=== PATIENT | female | born 1955 | race Two or more races ===

== ENCOUNTER 2020-02-17 09:32 | Outpatient (CLI) | payer OTHER ==
[~2020-02-17 09:32] MED LIST: NABUMETONE500 MG PO; PERCOCET 5/3251 TAB PO
== END 2020-02-17 09:46 | disposition home or self-care (01) ==
LOC: RAD 09:32 → MRI 10:45
PROVIDERS: ATTEND Orthopaedic Surgery
DX: M54.5 Low back pain (principal); M25.562 Pain in left knee; M25.561 Pain in right knee; Z12.31 Encounter for screening mammogram for malignant neoplasm of breast; Z87.898 Personal history of other specified conditions
CPT/HCPCS: 72148; 73721

== ENCOUNTER 2020-02-20 10:56 | Outpatient (CLI) | payer OTHER | END 2020-02-20 11:34 | disposition home or self-care (01) | LOC: NUCLEAR 10:56 | PROVIDERS: ATTEND Internal Medicine | DX: M81.0 Age-related osteoporosis without current pathological fracture (principal); Z13.820 Encounter for screening for osteoporosis ==

== ENCOUNTER 2023-10-30 06:32 | Day surgery (SDC) | payer OTHER ==
[2023-10-28 10:26] LABS: HEMATOCRIT 41.7 % (36.0-45.00); HEMOGLOBIN 13.9 g/dL (12.0-15.00); MEAN CELL VOLUME 89.2 fL (80.00-100.00); MEAN CORPUSCULAR HEMOGLOBIN 29.8 pg (27.00-32.0); MEAN CORPUSCULAR HGB CONC 33.4 g/dl (32.0-36.0); PLATELET COUNT 239 K/uL (150-450); RED BLOOD COUNT 4.68 M/uL (4.00-6.00); RED CELL DISTRIBUTION WIDTH 13.1 % (11.5-14.5)
[2023-10-28 10:28] LABS: URINE APPEARANCE Clear; URINE BILIRRUBIN Negative (NEGATIVE); URINE BLOOD Negative; URINE COLOR Dark Yellow; URINE GLUCOSE Negative (NEGATIVE); URINE LEUKOCYTE Trace; URINE NITRATE Negative; URINE PROTEIN Negative (NEGATIVE); URINE UROBILINOGEN 0.2 E.U./dl
[2023-10-28 10:34] LABS: URINE BACTERIA 123.4 uL (0.0-1933); URINE EPITHELIAL CELLS 16.9 uL (0.0-38.8); URINE RBC 6.3 uL (0.0-20.8); URINE WBC 10.3 uL (0.0-23.2)
[2023-10-28 10:57] LABS: INR 0.98; PROTHROMBIN TIME 10.3 SECONDS (9.0-11.5)
[2023-10-28 11:08] LABS: ALBUMIN 3.7 gm/dL (3.4-5.0); BILIRUBIN TOTAL 0.33 mg/dL (0.3-1.2); CALCIUM 9.4 mg/dL (8.5-10.1); CREATININE SERUM 0.83 mg/dL (0.55-1.02); GFR 68.16; GLOBULINA 3.6 G/DL (2.4-3.5); POTASSIUM 4.45 mEq/L (3.5-5.1); TOTAL PROTEIN 7.3 gm/dL (6.4-8.2)
[~2023-10-30 06:32] MED LIST changes: +LIPITOR40 M1 PO; +METFORMIN HCL500 M3 PO
[2023-10-30] MEDS ORDERED: CEFAZOLIN SODIUM 1,000 MG VIAL ONE (10:37)
[2023-10-30] MEDS ORDERED: CEFAZOLIN SODIUM 1,000 MG VIAL IV ONE (13:00)
== END 2023-10-30 18:00 | disposition home or self-care (01) ==
LOC: CIR.AMB 06:32
PROVIDERS: ATTEND Surgery
DX: D05.12 Intraductal carcinoma in situ of left breast (principal); R59.0 Localized enlarged lymph nodes; E11.9 Type 2 diabetes mellitus without complications; Z88.1 Allergy status to other antibiotic agents; Z91.013 Allergy to seafood; Z20.822 Contact with and (suspected) exposure to COVID-19
CPT/HCPCS: 19301; 38525; 19281; A9541; L8699

== ENCOUNTER 2025-02-01 06:03 | Day surgery (SDC) | payer OTHER ==
[2025-01-24 10:14] VITALS: BP 103/64
[2025-01-24 11:28] LABS: URINE APPEARANCE Clear; URINE BILIRRUBIN Negative (NEGATIVE); URINE BLOOD Negative; URINE COLOR Yellow; URINE GLUCOSE Negative (NEGATIVE); URINE KETONE Negative (NEGATIVE); URINE LEUKOCYTE Moderate; URINE NITRATE Negative; URINE PROTEIN Negative (NEGATIVE); URINE UROBILINOGEN 0.2 E.U./dl
[2025-01-24 11:32] LABS: URINE BACTERIA 239.8 uL (0.0-1933); URINE CAST 2.06 uL (0.0-1.40); URINE RBC 4.5 uL (0.0-20.8); URINE WBC 67.4 uL (0.0-23.2)
[2025-01-24 11:57] LABS: HEMATOCRIT 39.2 % (36.0-45.00); HEMOGLOBIN 13.3 g/dL (12.0-15.00); MEAN CELL VOLUME 89.3 fL (80.00-100.00); MEAN CORPUSCULAR HEMOGLOBIN 30.2 pg (27.00-32.0); MEAN CORPUSCULAR HGB CONC 33.9 g/dl (32.0-36.0); PLATELET COUNT 228 K/uL (150-450); RED BLOOD COUNT 4.39 M/uL (4.00-6.00); RED CELL DISTRIBUTION WIDTH 13.3 % (11.5-14.5)
[2025-01-24 12:12] LABS: INR 0.95; PARTIAL THROMBOPLASTIN TIME 26.5 SECONDS (22.0-34.0); PROTHROMBIN TIME 10.4 SECONDS (9.0-11.5)
[2025-01-24 12:45] LABS: CALCIUM 9.2 mg/dL (8.5-10.1); CREATININE SERUM 0.72 mg/dL (0.55-1.02); GFR 80.08; POTASSIUM 4.49 mEq/L (3.5-5.1)
[~2025-02-01] VITALS: Ht 167.6 cm; Wt 86.2 kg
[~2025-02-01 06:03] MED LIST changes: +KLONOPIN; +SEROQUEL200 MG PO
[2025-02-01] MEDS ORDERED: CEFAZOLIN SODIUM 1,000 MG VIAL ONE (09:08)
[2025-02-01] MEDS ORDERED: TRIAMCINOLONE ACETONIDE 40 MG/ML VIAL ONE (11:37)
[2025-02-01] MEDS ORDERED: MORPHINE SULFATE 4 MG/ML VIAL IV ONE (12:25)
== END 2025-02-01 14:00 | disposition home or self-care (01) ==
LOC: CIR.AMB 06:03
PROVIDERS: ATTEND Surgery Surgery of the Hand
DX: M67.843 Other specified disorders of tendon, right hand (principal); Z88.2 Allergy status to sulfonamides; Z91.013 Allergy to seafood